=== PATIENT | male | born 1990 | race Caucasian/White ===

== ENCOUNTER 2022-10-14 12:16 | Emergency (ER) | payer OTHER, SELFPAY ==
--- NOTE | ~2022-10-14 | XR_ITS ---
EXAMINATION: [id number] DATE: 10/14/2022 12:43 INDICATION: Lateral left rib pain post trauma TECHNIQUE: A frontal inspiratory view of the chest and 3 views of the left ribs were obtained. COMPARISON: Chest radiograph dated FINDINGS: No rib fractures identified. No pneumothorax. No focal infiltrates, pleural effusion or pulmonary esme ma. Cardiomediastinal silhouette is normal. IMPRESSION: 1. No rib fracture or acute cardiopulmonary disease. Reviewed, dictated and finalized at location [facility]
--- NOTE | 2022-10-14 12:17 | ED.BACK ---
HPI - Back Pain/Injury General Chief Complaint: Shortness of Breath/Dyspnea Stated Complaint: Flank Pain Time Seen by Provider: 10/14/22 12:17 Source: patient Mode of arrival: ambulatory Limitations: no limitations History of Present Illness HPI Narrative: Ranjan is a 31-year-old male patient presenting to the clinic today with complaints of left rib pain since this morning. He reports he does have some mild shortness of breath and pain is worse with inspiration. States that his 40 lb daughter jumped on his ribs this morning when he was laying on his right side and he felt a pop with instant pain. Rates his pain currently is 6/10 however it is worse with inspiration Related Data Home Medications Medication Instructions Recorded Confirmed aripiprazole 5 mg tablet mg 10/14/22 duloxetine 60 mg capsule,delayed mg PO 10/14/22 release propranolol 10 mg tablet mg 10/14/22 Allergies Allergy/AdvReac Type Severity Reaction Status Date / Time No Known Allergies Allergy Verified 10/14/22 12:24 Review of Systems Review of Systems: Pertinent positives per HPI. Patient denies any fever, chills, rash, headache, visual changes, dizziness, cough, runny nose, sore throat, shortness of breath, chest pain, palpitations, nausea, vomiting, diarrhea, constipation, abdominal pain, or any urinary issues. PMFSH Family History Family History Other Diabetes mellitus Social History Social History Alcohol intake: never Comments At the time of my signature, I reviewed and agree with the nursing past medical, surgical, social, and family history. There is no relevant family history pertinent to the patient complaint. Exam Narrative: General: Well-developed, well nourished, in no apparent distress Head: Normocephalic, atraumatic. Chest: Even rise and fall of chest wall, tenderness to palpation over the mid left lateral ribs, pain with inspiration, Cardio: Regular rate and rhythm, s1 and s2 normal, no murmur appreciated. Resp: Clear to auscultation but has a closing(clap sound with inspiration to the left lower/mid lobe, no rhonchi, rales, wheezing or rubs. Course Course Emergency Course: Portions of this record may have been created with voice recognition software. Level of Care: Express Care Visit Vital Signs Vital signs: Vital Signs Temperature 37.1 C 10/14/22 12:25 Pulse Rate 84 10/14/22 12:25 Respiratory Rate 16 10/14/22 12:25 Blood Pressure 145/77 H 10/14/22 12:25 Pulse Oximetry 99 10/14/22 12:25 Oxygen Delivery Room Air 10/14/22 12:25 Temperature 37.1 C 10/14/22 12:25 Pulse Rate 84 10/14/22 12:25 Respiratory Rate 16 10/14/22 12:25 Blood Pressure 145/77 H 10/14/22 12:25 Pulse Oximetry 99 10/14/22 12:25 Oxygen Delivery Room Air 10/14/22 12:25 Vital signs reviewed MDM - Back Pain/Injury MDM Narrative Medical decision making narrative: At the time of visit patient is resting on the exam table. x-ray is negative for any sign of rib fracture or pneumothorax. I suspect the patient has a rib contusion. incentive spirometer was given to the patient while at the clinic today. Supportive measures were discussed with the patient he voiced understanding of discharge instructions and agrees to treatment plan. Differential Diagnosis Differential diagnosis: Likely other ( Rib contusion, rib fracture, pneumothorax) Imaging Data Radiologist's impression: Close Ribs w/Chest X-Ray (Signed) Alphonse Bryant - 10/14/22 [facility] [address] [address] XRay Report Signed Patient: Ranjan Martinez : 1990 MR#: [id number] Age/Sex: 31 / M Acct:[id number] Loc: [facility]? ? ADM Date: 10/14/22Attending Dr: Ordering Physician: Earl
[2022-10-14 12:25] VITALS: BP 145/77; PULSE 84; RESP 16; TEMP 37.1; O2SAT 99
== END 2022-10-14 13:00 | disposition home or self-care (01) ==
PROVIDERS: Emergency Provider Nurse Practitioner Family; PCP Registered Nurse
DX: S20.212A Contusion of left front wall of thorax, initial encounter (principal); W51.XXXA Accidental striking against or bumped into by another person, initial encounter; F17.200 Nicotine dependence, unspecified, uncomplicated
CPT/HCPCS: 71101; 99213; G0463

== ENCOUNTER 2023-04-26 21:51 | Emergency (ER) | payer OTHER, SELFPAY ==
[2023-04-26 22:01] VITALS: BP 132/74; PULSE 97; RESP 17; TEMP 36.2; O2SAT 99
--- NOTE | 2023-04-26 23:12 | ED.ANIMALBIT ---
HPI - Animal Bite General Chief Complaint: Animal Bite <BEATRICE Somers Last Filed: 04/26/23 23:51> Stated Complaint: brown recluse got me <BEATRICE Somers Last Filed: 04/26/23 23:51> Time Seen by Provider: 04/26/23 22:43 <BEATRICE Somers Last Filed: 04/26/23 23:51> Source: patient <BEATRICE Somers Last Filed: 04/26/23 23:51> Mode of arrival: ambulatory <BEATRICE Somers Last Filed: 04/26/23 23:51> Limitations: no limitations <BEATRICE Somers Last Filed: 04/26/23 23:51> History of Present Illness HPI narrative: Patient is a 52-year-old male who presents to the ED with report of a possible spider bite to his right forearm. Patient reports he believes he was bit by a brown recluse spider last Friday in his right ventral forearm. He did not actually see a spider bite him, but states he has killed several brown recluse spiders in his basement where his bedroom is. He states the redness has continued to spread up and down his forearm. He noticed a small area of dark black scabbing forming today. He has not tried anything for his symptoms. He denies any fever, nausea, vomiting, drainage. <BEATRICE Somers Last Filed: 04/26/23 23:51> Related Data Home Medications: Home Medications Medication Instructions Recorded Confirmed aripiprazole 5 mg tablet 5 mg DAILY 10/14/22 10/14/22 duloxetine 60 mg capsule,delayed 60 mg PO DAILY 10/14/22 10/14/22 release propranolol 10 mg tablet 10 mg BID 10/14/22 10/14/22 <BEATRICE Somers Last Filed: 04/26/23 23:51> Allergies/Adverse Reactions: Allergies Allergy/AdvReac Type Severity Reaction Status Date / Time Penicillins Allergy Rash Verified 04/26/23 21:52 <JIMENEZ SomersC - Last Filed: 04/26/23 23:51> Review of Systems Review of Systems: CONSTITUTIONAL: Denies fever, chills, or sweats. CARDIOVASCULAR: Denies chest pain. RESPIRATORY: Denies dyspnea. GASTROINTESTINAL: Denies abdominal pain, nausea, vomiting. SKIN: See HPI. MUSCULOSKELETAL: See HPI. NEUROLOGIC: Denies headache, numbness, or weakness. <BEATRICE Somers Last Filed: 04/26/23 23:51> All systems reviewed & are unremarkable except as noted in HPI and below <Kenna Vang PA-C - Last Filed: 04/26/23 23:51> [facility] Family History Family History: Family History Other Diabetes mellitus <BEATRICE Somers Last Filed: 04/26/23 23:51> Social History Social History: Social History Alcohol intake: never <BEATRICE Somers Last Filed: 04/26/23 23:51> Exam Narrative: GENERAL: Well appearing, obese with BMI of 36.4, non-toxic, in no acute distress. HEAD: Normocephalic, atraumatic. NECK: Supple. No adenopathy, no masses. RESPIRATORY: Airway patent, respirations nonlabored. Clear to auscultation bilaterally, no rales, rhonchi, wheezing. CARDIOVASCULAR: Regular rate and rhythm without murmurs, rubs, or gallops. Radial pulses 2+ and equal bilaterally. MUSCULOSKELETAL: Moves all extremities. Strength/ROM intact without gross deformities. SKIN: Warm, dry, normal color. Area of induration to right proximal ventral forearm with small 0.5 cm area of eschar in center. No active drainage. Tenderness to palpation surrounding. Erythema and warmth extending on forearm and up to medial upper arm. NEURO: A&O X3. Speech clear. Cranial nerves II-XII grossly intact. Steady gait. No ataxic movements. PSYCHIATRIC: Appropriate mood and affect. Normal interaction. <Kenna Vang PA-C - Last Filed: 04/26/23 23:51> Course JANITOR CUSTODIAN/PA Physician Supervision This is a was performed by both a physician and an APC. I performed all aspects of the MDM as documented w/ the following additions
[2023-04-26] MEDS: DOXYCYCLINE HYCLATE 100 MG TABLET PO (23:32)
[2023-04-26] MEDS: ACETAMINOPHEN 500 MG TABLET 1000 MG PO (23:33)
== END 2023-04-26 23:59 | disposition home or self-care (01) ==
PROVIDERS: Emergency Provider Physician Assistant
DX: L03.113 Cellulitis of right upper limb (principal)
CPT/HCPCS: 99283; A9270